=== PATIENT | female | born 1970 | race Caucasian/White ===

== ENCOUNTER 2017-07-18 12:48 | Emergency (ER) | payer OTHER ==
[~2017-07-18] VITALS: Ht 160 cm; Wt 120.0 kg
[2017-07-18 12:52] VITALS: Ht 160 cm; Wt 120.0 kg
--- NOTE | 2017-07-18 16:09 | ERA ---
ER Documentation Chief Complaint Date/Time DATE: 07/18/17 TIME: 16:09 Chief Complaint hyperglicemia, i HPI The patient is a 46-year-old female, presenting to the ER because of high blood glucose at home, denies fever, chills, neck pain, chest pain, dyspnea, abdominal pain, vomiting, dysuria. She does not smoke or drink Past medical history: Diabetes mellitus, hypertension next Past surgical history: ROS All systems reviewed and are negative except as per history of present illness. Allergies Allergies: Coded Allergies: No Known Drug Allergy (Verified Allergy, Unknown, 05/22/15) PMhx/Soc History of Surgery: No Anesthesia Reaction: No Hx Neurological Disorder: No Hx Respiratory Disorders: No Hx Cardiac Disorders: Yes (htn) Hx Psychiatric Problems: No Hx Miscellaneous Medical Probl: No Hx Alcohol Use: No Hx Substance Use: No Hx Tobacco Use: No Physical Exam Vitals Vital Signs Date Time Temp Pulse Resp B/P Pulse Ox O2 Delivery O2 Flow Rate FiO2 07/18/17 12:52 97.8 97 18 143/72 99 Physical Exam Const: No acute distress. Head: Atraumatic. Eyes: Normal Conjunctiva. ENT: Normal External Ears, Nose and Mouth. Neck: Full range of motion. No meningismus. Resp: Clear to auscultation bilaterally. Cardio: Regular rate and rhythm. Abd: Soft, non distended, normal bowel sounds, non tender. Skin: No petechiae or rashes. Back: No midline or flank tenderness. Ext: No cyanosis, or edema. Neur: Awake and alert. No focal deficit Psych: Normal Mood and Affect. Result Diagram: 07/18/17 1610 07/18/17 1610 Results 24 hrs Laboratory Tests Test 07/18/17 16:10 07/18/17 16:39 White Blood Count 7.710^3/ul Red Blood Count 4.5610^6/ul Hemoglobin 14.0g/dl Hematocrit 40.1% Mean Corpuscular Volume 87.9fl Mean Corpuscular Hemoglobin 30.7pg Mean Corpuscular Hemoglobin Concent 34.9g/dl Red Cell Distribution Width 13.0% Platelet Count 23679^3/UL Mean Platelet Volume 9.9fl Neutrophils % 57.6% Lymphocytes % 34.3% Monocytes % 5.5% Eosinophils % 1.7% Basophils % 0.5% Nucleated Red Blood Cells % 0.0/100WBC Neutrophils # 4.410^3/ul Lymphocytes # 2.610^3/ul Monocytes # 0.410^3/ul Eosinophils # 0.110^3/ul Basophils # 0.010^3/ul Nucleated Red Blood Cells # 0.010^3/ul Sodium Level 134mmol/L Potassium Level 4.2mmol/L Chloride Level 97mmol/L Carbon Dioxide Level 28mmol/L Anion Gap 13 Blood Urea Nitrogen 12mg/dl Creatinine 0.53mg/dl Glucose Level 291mg/dl Calcium Level 9.8mg/dl Bedside Urine pH (LAB) 5.5 Bedside Urine Protein (LAB) Trace Bedside Urine Glucose (UA) 0.50% Bedside Urine Ketones (LAB) Negative Bedside Urine Blood Negative Bedside Urine Nitrite (LAB) Negative Bedside Urine Leukocyte Esterase (L Negative Current Medications Medications (Trade) Dose Ordered Sig/Jeff Route PRN Reason Start Time Stop Time Status Last Admin Dose Admin Sodium Chloride (NS) 1,000 ml @ 1,000 mls/hr Q1H ONCE IV 07/18/17 16:30 07/18/17 17:29 DC 07/18/17 16:43 Procedures/MDM MEDICAL MAKING DECISION: The patient is a 38-year-old female, presenting acute upper hypercalcemia. She was treated with 1 L normal saline with good response. The differential diagnoses considered include but are not limited to UTI, pneumonia, HHS, DKA Departure Diagnosis: Primary Impression: Hyperglycemia due to type 2 diabetes mellitus Condition: Good Comments I discussed the findings with the patient. I advised the patient to follow-up with the primary physician in about 1-2 days, sooner if needed and return if any concern. JOSE LEE MD Jul 18, 2017 16:09
[2017-07-18] MEDS ORDERED: SOD CHLORIDE 0.9% 1,000 ML IV ONE (16:30)
[2017-07-18 16:32] LABS: URINE BLOOD (Dip) POC Negative (NEGATIVE)
[2017-07-18 16:50] LABS: BASOPHILS % 0.5 % (0.0-2.0); EOSINOPHILS # 0.1 10^3/ul (0.0-0.5); EOSINOPHILS % 1.7 % (0.0-7.0); HEMATOCRIT 40.1 % (37.0-47.0); LYMPHOCYTES # 2.6 10^3/ul (0.8-2.9); LYMPHOCYTES % 34.3 % (15.0-51.0); MEAN CORPUSCULAR HEMOGLOBIN 30.7 pg (29.0-33.0); MEAN CORPUSCULAR HGB CONC 34.9 g/dl (32.0-37.0); MEAN CORPUSCULAR VOLUME 87.9 fl (82.0-101.0); MEAN PLATELET VOLUME 9.9 fl (7.4-10.4); MONOCYTE # 0.4 10^3/ul (0.3-0.9); MONOCYTES % 5.5 % (0.0-11.0); NEUTROPHIL # 4.4 10^3/ul (1.6-7.5); NEUTROPHILS % 57.6 % (39.0-77.0); PLATELET COUNT 332 10^3/UL (140-415); RED BLOOD COUNT 4.56 10^6/ul (4.20-5.40); WHITE BLOOD COUNT 7.7 10^3/ul (4.8-10.8)
[2017-07-18 17:10] LABS: CALCIUM 9.8 mg/dl (8.4-10.2); CREATININE 0.53 mg/dl (0.44-1.00); POTASSIUM 4.2 mmol/L (3.5-5.1)
== END 2017-07-18 17:57 | disposition home or self-care (01) ==
LOC: E/R 12:48
DX: E11.65 Type 2 diabetes mellitus with hyperglycemia (principal); I10 Essential (primary) hypertension
CPT/HCPCS: 80048; 81003; 85025; J7030; 36415

== ENCOUNTER 2019-02-06 23:01 | Emergency (ER) | payer OTHER ==
[~2019-02-06] VITALS: Ht 160 cm; Wt 109.8 kg
[2019-02-06 23:05] VITALS: Ht 160 cm; Wt 109.8 kg
--- NOTE | 2019-02-07 00:48 | ERD ---
ER Documentation Chief Complaint Chief Complaint dysuria, lower back pain, dysuria x8 days HPI The patient is a 48-year-old female, presenting to the ER because she has painful urination for the last 8 days, seen by her physician 7 days ago and treated with Cipro. However she is not feeling better, denies fever, chills, neck pain, chest pain, dyspnea, abdominal pain, low back pain. She does not smoke nor drink Past medical history: Hypertension, diabetes mellitus Past surgical history: Tubal ligation ROS All systems reviewed and are negative except as per history of present illness. Medications Home Meds Active Scripts Sulfamethoxazole/Trimethoprim* (Bactrim Ds* Tablet) 1 Each Tablet, 1 TAB PO BID, #14 TAB Prov:JOSE LEE MD 02/07/19 Reported Medications Metformin* (Glucophage*) 500 Mg Tab, 100 MG PO BID TAKE 1 TABLET BY MOUTH TWICE A DAY 02/07/19 Glipizide* (Glipizide*) 10 Mg Tablet, 10 MG PO BID TAKE 1 TABLET BY MOUTH TWICE A DAY 02/07/19 Lisinopril* (Lisinopril*) 20 Mg Tablet, 20 MG PO DAILY 02/07/19 Allergies Allergies: Coded Allergies: No Known Drug Allergy (Unverified Allergy, Unknown, 02/07/19) PMhx/Soc History of Surgery: No Anesthesia Reaction: No Hx Neurological Disorder: No Hx Respiratory Disorders: No Hx Cardiac Disorders: Yes (htn) Hx Psychiatric Problems: No Hx Miscellaneous Medical Probl: Yes (dm) Hx Alcohol Use: No Hx Substance Use: No Hx Tobacco Use: No Physical Exam Vitals Vital Signs Date Temp Pulse Resp B/P (MAP) Pulse Ox O2 O2 Flow FiO2 Time Delivery Rate 02/07/19 70 20 123/66 97 Room Air 05:05 (85) 02/06/19 99.8 101 20 156/74 95 23:05 (101) Physical Exam Const: No acute distress. Head: Atraumatic. Eyes: Normal Conjunctiva. ENT: Normal External Ears, Nose and Mouth. Neck: Full range of motion. No meningismus. Resp: Clear to auscultation bilaterally. Cardio: Regular rate and rhythm. Abd: Soft, non distended, normal bowel sounds, non tender. Skin: No petechiae or rashes. Back: No midline or flank tenderness. Ext: No cyanosis, or edema. Neur: Awake and alert. No focal deficit Psych: Normal Mood and Affect. Results 24 hrs Laboratory Tests Test 02/07/19 00:57 02/07/19 01:18 POC Beta HCG, Qualitative NEGATIVE Urine Color YELLOW Urine Clarity TURBID Urine pH 6.0 Urine Specific [place] 1.009 Urine Ketones NEGATIVE mg/dL Urine Nitrite NEGATIVE mg/dL Urine Bilirubin NEGATIVE mg/dL Urine Urobilinogen NEGATIVE mg/dL Urine Leukocyte Esterase 3+ Mary/ul Urine Microscopic RBC 58 /HPF Urine Microscopic WBC > 182 /HPF Urine Squamous Epithelial Cells FEW /HPF Urine Bacteria FEW /HPF Urine Hemoglobin 2+ mg/dL Urine Glucose 1+ mg/dL Urine Total Protein 1+ mg/dl Procedures/MDM MEDICAL MAKING DECISION: The patient is a 48-year-old female, presenting with acute cystitis, not responding to Cipro. She was advised to stop Cipro and I will prescribe Bactrim DS The differential diagnoses considered include but are not limited to cholelithiasis, cholecystitis, choledocholithiasis, cholangitis, pancreatitis, hepatitis, gastritis, peptic ulcer disease, gastric ulcer, appendicitis, cystitis, diverticulitis, partial small bowel obstruction. Departure Diagnosis: Primary Impression: UTI (urinary tract infection) Condition: Good Comments She was discharge with Bactrim DS I discussed the findings with the patient. I advised the patient to follow-up with the primary physician in about 2-3 days, sooner if needed and return if any concern. Disclaimer: Inadvertent spelling and grammatical errors are likely due to EHR/dictation software use and do not reflect on the overall quality of patient care. Also, please note that the electronic time recorded on this note does not necessarily reflect the actual time of the patient encounter. JOSE LEE MD Feb 07, 2019 00:48
[2019-02-07] MEDS ORDERED: GLIP10TA14 PO (04:10)
[2019-02-07] MEDS ORDERED: METF-849 PO (04:10)
[2019-02-07] MEDS ORDERED: LISI-471 PO (04:10)
[2019-02-07] MEDS ORDERED: SULF1TAB31 PO (04:57)
[2019-02-07 05:05] VITALS: BP 123/66; PULSE 70; RESP 20
== END 2019-02-07 05:15 | disposition home or self-care (01) ==
LOC: E/R 23:01
DX: N39.0 Urinary tract infection, site not specified (principal); I10 Essential (primary) hypertension; E11.9 Type 2 diabetes mellitus without complications; Z79.84 Long term (current) use of oral hypoglycemic drugs
CPT/HCPCS: 81001; 81025; 87086; Z7502; Z7610; 99283